=== PATIENT | female | born 1960 | race Caucasian/White ===

== ENCOUNTER → 2016-11-25 | Outpatient (CLI) | payer BC ==
[2016-11-25 09:45] LABS: HEMOGLOBIN 16.6 g/dL (12.2-16.2); LYMPH # 1.9 K/mm3 (0.7-4.5); LYMPH % 29.6 % (10-50.0)
[2016-11-25 09:58] LABS: BUN 17 mg/dL (7-18); FREE THYROXIN INDEX 8.8 ug/dl (5.93-13.13); GFR (ESTIMATED) 74 ML/MIN (59-)
--- NOTE | 2016-11-25 10:37 | RADIOLOGY REPORT PS360 ---
EXAM: Barium swallow/esophagram. INDICATION: Dysphagia ORDERING PHYSICIAN: Jimmy Nathan MD PATIENT AGE: 56 years COMPARISON: None TECHNIQUE: In the upright position the patient was observed to swallow barium in both the AP and lateral view. The cervical esophagus was examined under fluoroscopy with images obtained. The patient was then placed prone in the right anterior oblique position and was observed to swallow barium with Valsalva technique . FLUOROSCOPY TIME: 1 minute and 4 seconds FINDINGS: There was no evidence of aspiration. There was normal peristalsis. No filling defects or mucosal abnormalities. No masses or strictures. IMPRESSION: Negative barium swallow.
--- NOTE | 2016-11-25 18:09 | RADIOLOGY REPORT PS360 ---
US RUQ-(ABD LTD)1ORGAN/QUAD/FU HISTORY: Epigastric pain, right upper quadrant pain with nausea RUQ PAIN ORDERING PHYSICIAN: Jimmy Nathan MD PATIENT AGE: 56 years COMPARISON: None FINDINGS: PANCREAS:Unremarkable. No obvious mass or abnormal fluid collection. No ductal dilatation LIVER:No focal liver lesions demonstrated. Homogeneous echogenicity. No intrahepatic biliary ductal dilatation evident RIGHT KIDNEY:Unremarkable. Normal size and echogenicity. No hydronephrosis GALLBLADDER: Small hyperechoic focus is present along the posterior wall the gallbladder at the fundus and could be due to small amount of tumefactive sludge or nonshadowing stone. No gallbladder wall thickening, pericholecystic fluid, or biliary dilatation. IMPRESSION: Small hyperechoic focus within the gallbladder measuring 5 mm and may be due to a small sludge ball or nonshadowing stone
== END ==
LOC: RAD 08:03
PROVIDERS: Internal Medicine Adolescent Medicine
DX: R10.11 Right upper quadrant pain (principal); R13.14 Dysphagia, pharyngoesophageal phase; E01.0 Iodine-deficiency related diffuse (endemic) goiter

== ENCOUNTER → 2016-12-04 | Outpatient (CLI) | payer BC ==
--- NOTE | 2016-12-04 14:53 | RADIOLOGY REPORT PS360 ---
[facility] ([facility]) HISTORY: RUQ PAIN ORDERING PHYSICIAN: Jimmy Nathan MD PATIENT AGE: 56 years COMPARISON: Ultrasound of 11/25/1969 a DOSE: 8.15 mCi of Tc Choletec Fatty meal with Ensure. Right upper quadrant pain is reported with the fatty meal. FINDINGS: Homogeneous activity is present within the hepatic parenchyma. Activity is present in the gallbladder by 10 minutes. Activity is present in the small bowel by 30 minutes. The gallbladder ejection fraction is calculated to be 32 % The patient reported right upper quadrant pain with fatty meal. IMPRESSION: 1. No evidence of common or cystic duct obstruction. 2. Gallbladder ejection fraction slightly low at 32%. Right upper quadrant pain is reported with fatty meal. Gallbladder dyskinesia is a consideration.. Please correlate with clinical findings.
== END ==
LOC: RAD 10:23
DX: R10.11 Right upper quadrant pain (principal)
CPT/HCPCS: A9537

== ENCOUNTER 2017-01-01 08:47 | Day surgery (SDC) | payer BC ==
--- NOTE | 2017-01-01 10:10 | Operative Note ---
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 Barium swallow revealed no significant abnormality. She is also noticed some gastroesophageal reflux. Evaluation regarding possible biliary disease is also ongoing she does have some symptoms that her "worse with greasy food". She does not have specific RIGHT upper quadrant pain, nausea, or vomiting ; however, she does experience "a knot bowel movement RIGHT after greasy meals". She has never had a colonoscopy. Recent RIGHT upper quadrant ultrasound revealed a small hyperechoic focus in the gallbladder and hepatobiliary scan revealed an ejection fraction of 30 percent. Note: The patient was scheduled for both EGD and colonoscopy. She decided to forego colonoscopy "for now". 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 IV sedation ensued after she was transferred to the LEFT lateral decubitus position. The gastroscope was advanced. A small inlet was noted in the proximal esophagus. The junction was at 40 cm. The stomach was entered. Retroflexion revealed a small sliding hiatal hernia that was noted on maximal insufflation. Patchy gastritis and changes consistent with possible gastric antral vascular ectasia were noted. Antral biopsies were obtained. The pylorus was intubated. Mild lobular polypoid changes within the proximal duodenum were noted and a biopsy of a small duodenal bulb polyp was made. The gastroscope was carefully removed and the patient was transferred to recovery. EBL (ml): 1 Anesthesia: IV sedation with 9 mg of Versed and 150 g of fentanyl Complications: No immediate Specimens: Duodenal bulb polyp Antral biopsy Disposition Disposition: Stable to recovery from where she will be discharged home. She will follow-up in one week. Note. The patient was initially scheduled to also undergo colonoscopy, but she stated that she "just (did) not do that right now". at 1011
[2017-01-01 14:03] VITALS: BP 105/68
== END 2017-01-01 11:00 | disposition home or self-care (01) ==
LOC: SDC 08:47
PROVIDERS: Surgery
PROC: 0DB78ZX Excision of Stomach, Pylorus, Via Natural or Artificial Opening Endoscopic, Diagnostic (ICD-10-PCS; 2017-01-01)
PROC: 0DB98ZX Excision of Duodenum, Via Natural or Artificial Opening Endoscopic, Diagnostic (ICD-10-PCS; principal; 2017-01-01 09:30)
DX: K21.9 Gastro-esophageal reflux disease without esophagitis (principal); K44.9 Diaphragmatic hernia without obstruction or gangrene; K31.7 Polyp of stomach and duodenum; K29.70 Gastritis, unspecified, without bleeding; K31.819 Angiodysplasia of stomach and duodenum without bleeding